=== PATIENT | male | born 1950 | race Caucasian/White ===

== ENCOUNTER → 2016-11-24 | Outpatient (CLI) | payer OTHER ==
[~2016-11-24] MED LIST: AMLO-110 PO; ASPCH81X PO; GEMF600T PO; GLIM4TAB PO; LOSA50TA6 PO; MAGN400T6 PO; METF850T PO; METO-452 PO; NITR0.4S UT; WLC625 PO
[2016-11-24 13:54] LABS: BLOOD UREA NITROGEN 31 mg/dl (7-18); BUN/CREATININE RATIO 23.5 (10-20); CARBON DIOXIDE 26 mmol/L (21-32); CHLORIDE 103 mmol/L (98-107); GLUCOSE 174 mg/dl (70-99); POTASSIUM 4.5 mmol/L (3.5-5.1); SODIUM 139 mmol/L (136-145)
== END | disposition home or self-care (01) ==
LOC: C.LABMFLN 08:15
PROVIDERS: ATTEND Physician Assistant
DX: I25.10 Atherosclerotic heart disease of native coronary artery without angina pectoris (principal); E78.5 Hyperlipidemia, unspecified; R60.0 Localized edema; R06.02 Shortness of breath; Z95.1 Presence of aortocoronary bypass graft; I10 Essential (primary) hypertension; I25.5 Ischemic cardiomyopathy; I50.22 Chronic systolic (congestive) heart failure

== ENCOUNTER → 2016-11-29 | Outpatient (CLI) | payer OTHER ==
[~2016-11-29] MED LIST changes: +PERFLUTREN LIPID MICROSPHERE (DEFINITY) IV ONE
--- NOTE | 2016-11-29 15:35 | ECHOCARDIOGRAM REPORT ---
*NOTICE TO RECEIVING [employer] AGENCY This information is strictly Confidential and protected under [place] law. [place] law prohibits you from making any further disclosure of this information unless further disclosure is expressly permitted by the written consent of the person to whom it pertains or is authorized by law. A general authorization for the release of medical or other information is not sufficient for this purpose. Hospital accepts no responsibility if the information is made available to any other person, INCLUDING THE PATIENT. Interpretation Summary * Name: ARA MONTEMAYOR Study Date: 11/29/2016 12:58 PM BP: 147/68 mmHg * Patient Location: [facility] HR: 71 * : 1950 (M/d/yyyy) Gender: Male Height: 69 in * Age: 66 yrs Ethnicity: [place] Weight: 235 lb * Ordering Physician: Sully León * Referring Physician: Sully León PA-C * Performed By: Larisa Florez RCS * * Reason For Study: LOCALIZED EDEMA * BSA: 2.2 m2 * The study was technically adequate. * Compared to prior study, there is no significant change. * -- Conclusions -- * Left ventricular systolic function is moderately reduced. * There is a large sized apical, septal, and anteroseptal wall motion abnormality with hypokinesis to * akinesis of the segments. * Ejection Fraction = 35-40%. * The left atrium is severely dilated. * There is mild mitral regurgitation. * There is moderate tricuspid regurgitation. * The estimated systolic PAP is 61mmhg. Procedure Details * A complete two-dimensional transthoracic echocardiogram was performed (2D, M-mode, Doppler and color flow Doppler). * The study was technically difficult. * There were technical limitations due to patient'sbody habitus * A contrast injection of Definity was performed to improve assessment of LV function. * Contrast was injected into an intravenous site in the left arm. * One vial of Definity ultrasound contrast was diluted in normal saline to a total volume of 10 ml. A total of '3' ml of solution was administered during imaging. * Lot # [id number] of Definity utilized for procedure. * Expiration date NOV 07. * The attending nurse who injected the contrast agent was TIA SABILLON CPL, RN. Left Ventricle * The left ventricle is normal in size. * There is no thrombus. * There is mild concentric left ventricular hypertrophy. * Left ventricular systolic function is moderately reduced. * Ejection Fraction = 35-40%. * There is a large sized apical, septal, and anteroseptal wall motion abnormality with hypokinesis to akinesis of the segments. Right Ventricle * The right ventricle is normal size. * The right ventricular systolic function is normal as assessed by tricuspid annular plane systolic excursion (TAPSE) (normal >1.5 cm). Atria * The left atrium is severely dilated. * The right atrium is mildly dilated. * There is no evidence of atrial septal defect, but resolution does not allow assessment for a patent foramen ovale. Mitral Valve * The mitral valve is normal. * There is no mitral valve stenosis. * There is mild mitral regurgitation. Tricuspid Valve * The tricuspid valve is normal. * There is no tricuspid stenosis. * There is moderate tricuspid regurgitation. * The estimated systolic PAP is 61mmhg. Aortic Valve * The aortic valve is trileaflet. * Aortic stenosis is absent. * There is no significant aortic regurgitation. Pulmonic Valve * The pulmonary valve is not well seen, but the Doppler examination is normal without significant regurgitation or stenosis. Great Vessels * The aortic root is normal size. Pericardium/Pleural * There is no pericardial effusion. Great Vessels * Normal inferior vena cava diameter and respiratory variation suggests normal central venous pressure. Left Ventricular Diastolic Function * Pulse wave TDI of the anterior and posterior mitral annulas demonstrates abnormal LV relaxation MMode 2D Measurements and Calculations IVSd 1.7 cm IVSs 1.8 cm LVIDd 6.2 cm LVIDs 5.0 cm LVPWd 1.4 cm LVPWs 1.8 cm IVS/LVPW 1.2 FS 19.6 % EDV(Teich) 195.4 ml ESV(Teich) 118.4 ml EF(Teich) 39.4 % EDV(cubed) 240.5 ml ESV(cubed) 125.2 ml EF(cubed) 48.0 % % IVS thick 4.2 % % LVPW thick 34.9 % LV mass(C)d 464.8 grams LV mass(C)dI 210.1 grams/m\S\2 LV mass(C)s 427.0 grams LV mass(C)sI 193.0 grams/m\S\2 SV(Teich) 77.0 ml SI(Teich) 34.8 ml/m\S\2 SV(cubed) 115.4 ml SI(cubed) 52.2 ml/m\S\2 LVOT diam 2.0 cm LVOT area 3.2 cm\S\2 LVAd ap4 56.7 cm\S\2 LVLd ap4 9.5 cm EDV(MOD-sp4) 267.6 ml EDV(sp4-el) 288.2 ml LVAs ap4 46.1 cm\S\2 LVLs ap4 8.7 cm ESV(MOD-sp4) 197.6 ml ESV(sp4-el) 207.7 ml EF(MOD-sp4) 26.1 % EF(sp4-el) 27.9 % LVAd ap2 42.4 cm\S\2 LVLd ap2 8.0 cm EDV(MOD-sp2) 186.9 ml EDV(sp2-el) 190.6 ml LVAs ap2 30.0 cm\S\2 LVLs ap2 7.1 cm ESV(MOD-sp2) 112.0 ml ESV(sp2-el) 108.0 ml EF(MOD-sp2) 40.1 % EF(sp2-el) 43.3 % LVLd %diff -18.44 % EDV(MOD-bp) 246.5 ml LVLs %diff -23.20 % ESV(MOD-bp) 164.3 ml EF(MOD-bp) 33.3 % SV(MOD-sp4) 70.0 ml SI(MOD-sp4) 31.6 ml/m\S\2 SV(MOD-sp2) 74.9 ml SI(MOD-sp2) 33.9 ml/m\S\2 SV(MOD-bp) 82.2 ml SI(MOD-bp) 37.2 ml/m\S\2 SV(sp4-el) 80.4 ml SI(sp4-el) 36.4 ml/m\S\2 SV(sp2-el) 82.6 ml SI(sp2-el) 37.3 ml/m\S\2 Doppler Measurements and Calculations MV E max luann 79.3 cm/sec MV P1/2t max luann 83.6 cm/sec MV P1/2t 58.6 msec MVA(P1/2t) 3.8 cm\S\2 MV dec slope 417.7 cm/sec\S\2 MV dec time 0.16 sec Ao V2 max 120.8 cm/sec Ao max PG 5.8 mmHg Ao max PG (full) 3.6 mmHg MIGUEL(V,A) 2.0 cm\S\2 MIGUEL(V,D) 2.0 cm\S\2 LV V1 max PG 2.2 mmHg LV V1 max 74.4 cm/sec MR max luann 484.5 cm/sec MR max PG 93.9 mmHg PA V2 max 105.9 cm/sec PA max PG 4.5 mmHg TR max lunan 380.2 cm/sec
== END | disposition home or self-care (01) ==
LOC: C.CPL 12:38
PROVIDERS: ATTEND Physician Assistant
DX: R60.0 Localized edema (principal); I25.10 Atherosclerotic heart disease of native coronary artery without angina pectoris; E78.5 Hyperlipidemia, unspecified; R06.02 Shortness of breath; Z95.1 Presence of aortocoronary bypass graft; I10 Essential (primary) hypertension; I50.22 Chronic systolic (congestive) heart failure; I25.5 Ischemic cardiomyopathy

== ENCOUNTER → 2017-04-04 | Outpatient (CLI) | payer OTHER ==
[~2017-04-04] MED LIST changes: -METO-452 PO; +METO1TAB66 PO; -PERFLUTREN LIPID MICROSPHERE (DEFINITY) IV ONE
[2017-04-04 13:19] LABS: ALT/SGPT 15 U/L (12-78); BLOOD UREA NITROGEN 30 mg/dl (7-18); BUN/CREATININE RATIO 23.4 (10-20); CALCIUM 9.8 mg/dl (8.5-10.1); CARBON DIOXIDE 27 mmol/L (21-32); CHLORIDE 107 mmol/L (98-107); GLUCOSE 154 mg/dl (70-99); SODIUM 138 mmol/L (136-145)
[2017-04-04 13:22] LABS: CHOLESTEROL 137 mg/dl (0-200); CHOLESTEROL/HDL RATIO 3.7; HDL CHOLESTEROL 37 mg/dl; LDL CHOLESTEROL CALCULATED 78 mg/dl; TRIGLYCERIDES 108 mg/dl (0-150); VERY LOW DENSITY LIPOPROT CALC 22 mg/dl
[2017-04-04 13:27] LABS: ESTIMATED AVERAGE GLUCOSE 174 mg/dl; HA1C FLAG Normal (Normal)
== END | disposition home or self-care (01) ==
LOC: C.LABMFLN 07:03
PROVIDERS: ATTEND Family Medicine
DX: E11.9 Type 2 diabetes mellitus without complications (principal); I10 Essential (primary) hypertension; I25.10 Atherosclerotic heart disease of native coronary artery without angina pectoris

== ENCOUNTER → 2017-07-02 | Outpatient (CLI) | payer OTHER ==
[~2017-07-02] MED LIST changes: +METO-452 PO; -METO1TAB66 PO
[2017-07-02 18:29] LABS: HEMATOCRIT 36.4 % (42-52); MEAN CELL VOLUME 97.1 fL (80-100); MEAN CORPUSCULAR HEMOGLOBIN 32.5 pg (25-34); MEAN CORPUSCULAR HGB CONC 33.5 g/dl (32-36); MEAN PLATELET VOLUME 10.5 fL (7.4-10.4); PLATELET COUNT 234 K/uL (130-400); RED BLOOD COUNT 3.75 M/uL (4.7-6.1); WHITE BLOOD COUNT 7.13 K/uL (4.8-10.8)
[2017-07-02 18:41] LABS: ALT/SGPT 19 U/L (12-78); AST/SGOT 20 U/L (15-37); BLOOD UREA NITROGEN 37 mg/dl (7-18); BUN/CREATININE RATIO 24.2 (10-20); CALCIUM 9.7 mg/dl (8.5-10.1); CARBON DIOXIDE 30 mmol/L (21-32); CHLORIDE 102 mmol/L (98-107); CREATININE 1.53 mg/dl (0.60-1.40); GLUCOSE 120 mg/dl (70-99); MAGNESIUM 2.4 mg/dl (1.8-2.4); POTASSIUM 4.4 mmol/L (3.5-5.1); SODIUM 137 mmol/L (136-145)
[2017-07-02 18:44] LABS: CHOLESTEROL 184 mg/dl (0-200); CHOLESTEROL/HDL RATIO 3.8; HDL CHOLESTEROL 49 mg/dl; LDL CHOLESTEROL CALCULATED 105 mg/dl; TRIGLYCERIDES 152 mg/dl (0-150); VERY LOW DENSITY LIPOPROT CALC 30 mg/dl
== END | disposition home or self-care (01) ==
LOC: C.LABMFLN 12:49
PROVIDERS: ATTEND Internal Medicine Cardiovascular Disease
DX: E78.5 Hyperlipidemia, unspecified (principal); I10 Essential (primary) hypertension; I50.22 Chronic systolic (congestive) heart failure; I25.10 Atherosclerotic heart disease of native coronary artery without angina pectoris; I25.2 Old myocardial infarction; R00.2 Palpitations

== ENCOUNTER → 2017-08-20 | Outpatient (CLI) | payer OTHER ==
[2017-08-20 14:08] LABS: BLOOD UREA NITROGEN 33 mg/dl (7-18); CALCIUM 10.2 mg/dl (8.5-10.1); CARBON DIOXIDE 30 mmol/L (21-32); CREATININE 1.69 mg/dl (0.60-1.40); GLUCOSE 151 mg/dl (70-99); POTASSIUM 4.4 mmol/L (3.5-5.1); SODIUM 138 mmol/L (136-145)
== END | disposition home or self-care (01) ==
LOC: C.LABMFLN 09:20
PROVIDERS: ATTEND Physician Assistant Medical
DX: I50.23 Acute on chronic systolic (congestive) heart failure (principal)

== ENCOUNTER → 2017-08-24 | Outpatient (CLI) | payer OTHER ==
[2017-08-24 13:20] LABS: BLOOD UREA NITROGEN 36 mg/dl (7-18); CARBON DIOXIDE 30 mmol/L (21-32); GLUCOSE 240 mg/dl (70-99); POTASSIUM 4.5 mmol/L (3.5-5.1); SODIUM 137 mmol/L (136-145)
== END | disposition home or self-care (01) ==
LOC: C.LABMFLN 07:57
PROVIDERS: ATTEND Internal Medicine Cardiovascular Disease
DX: R00.1 Bradycardia, unspecified (principal); I11.0 Hypertensive heart disease with heart failure; R00.2 Palpitations; I25.119 Atherosclerotic heart disease of native coronary artery with unspecified angina pectoris; I25.5 Ischemic cardiomyopathy; I47.1 Supraventricular tachycardia; I50.23 Acute on chronic systolic (congestive) heart failure

== ENCOUNTER → 2017-08-28 | Outpatient (CLI) | payer OTHER ==
[2017-08-28 14:14] LABS: BLOOD UREA NITROGEN 36 mg/dl (7-18); CARBON DIOXIDE 30 mmol/L (21-32); CREATININE 1.69 mg/dl (0.60-1.40); GLUCOSE 248 mg/dl (70-99); POTASSIUM 4.5 mmol/L (3.5-5.1); SODIUM 137 mmol/L (136-145)
== END | disposition home or self-care (01) ==
LOC: C.LABMFLN 09:02
PROVIDERS: ATTEND Internal Medicine Cardiovascular Disease
DX: I50.22 Chronic systolic (congestive) heart failure (principal)

== ENCOUNTER → 2017-09-14 | Outpatient (CLI) | payer OTHER ==
--- NOTE | 2017-09-12 13:36 | ECHOCARDIOGRAM REPORT ---
*NOTICE TO RECEIVING [employer]ENCY This information is strictly Confidential and protected under [place] law. [place] law prohibits you from making any further disclosure of this information unless further disclosure is expressly permitted by the written consent of the person to whom it pertains or is authorized by law. A general authorization for the release of medical or other information is not sufficient for this purpose. Hospital accepts no responsibility if the information is made available to any other person, INCLUDING THE PATIENT. Interpretation Summary * Name: ARA MONTEMAYOR Study Date: 09/11/2017 07:33 AM BP: 150/91 mmHg * Patient Location: [facility] Lab HR: 68 * : 1950 (M/d/yyyy) Gender: Male Height: 69 in * Age: 67 yrs Ethnicity: [place] Weight: 225 lb * Ordering Physician: Chema Segura * Referring Physician: Chema Segura * Performed By: Nohemi Lobo RCS * * Reason For Study: CHF * BSA: 2.2 m2 * -- Conclusions -- * 1. Moderately dilated left ventricle with moderately reduced systolic function. Estimated EF 35-40%. Akinesis of the inferior wall, mid anteroseptum, distal septum, distal anterior, distal lateral wall segments, including the apex. Mild left ventricular hypertrophy of the anteroseptum. Tissue Doppler suggests elevated left atrial pressure. No definite apical thrombus. * 2. Right ventricle not well visualized but appears to be at least mildly dilated with reduced systolic function. * 3. The left atrium is severely dilated. * 4. The right atrium is mildly dilated. * 5. There is mild to moderate mitral regurgitation. * 6. There is mild to moderate tricuspid regurgitation. * 7. Severely elevated right ventricular systolic pressure; 60mmHg. * 8. Technically difficult study, enhanced with IV Definity. * 9. Similar findings compared to prior study on 11/29/2016. Procedure Details * A complete two-dimensional transthoracic echocardiogram was performed (2D, M-mode, Doppler and color flow Doppler). * The study was technically difficult. * A contrast injection of Definity was performed to improve assessment of LV function. * A contrast injection of Definity was performed to improve assessment for apical thrombus. * Contrast was injected into an intravenous site in the right arm. * One vial of Definity ultrasound contrast was diluted in normal saline to a total volume of 10 ml. A total of '1' ml of solution was administered during imaging. * Lot # [id number] of Definity utilized for procedure. * Expiration date . * The attending nurse who injected the contrast agent was Shirley Crawley RN. Left Ventricle * Moderately dilated left ventricle with moderately reduced systolic function. Estimated EF 35-40%. Akinesis of the inferior wall, mid anteroseptum, distal septum, distal anterior, distal lateral wall segments, including the apex. Mild left ventricular hypertrophy of the anteroseptum. Tissue Doppler suggests elevated left atrial pressure. No definite apical thrombus. Right Ventricle * Right ventricle not well visualized but appears to be at least mildly dilated with reduced systolic function. Atria * The left atrium is severely dilated. * The right atrium is mildly dilated. * There is no evidence of atrial septal defect, but resolution does not allow assessment for a patent foramen ovale. Mitral Valve * The mitral valve is grossly normal. * There is no mitral valve stenosis. * There is mild to moderate mitral regurgitation. Tricuspid Valve * There is no tricuspid stenosis. * There is mild to moderate tricuspid regurgitation. Aortic Valve * The aortic valve is trileaflet. * No hemodynamically significant valvular aortic stenosis. * There is no significant aortic regurgitation. Pulmonic Valve * The pulmonic valve is not well seen, but is grossly normal. * There is no pulmonic valvular stenosis. * Mild pulmonic valvular regurgitation. Great Vessels * The aortic root is normal size. * Aortic arch of normal dimension. Pericardium/Pleural * There is no pericardial effusion. Great Vessels * Normal inferior vena cava size and collapsability with sniff indicates a normal right atrial pressure of 3 mmHg MMode 2D Measurements and Calculations IVSd 1.3 cm IVSs 1.5 cm LVIDd 6.0 cm LVIDs 5.3 cm LVPWd 1.1 cm LVPWs 1.6 cm IVS/LVPW 1.2 FS 11.3 % EDV(Teich) 178.0 ml ESV(Teich) 135.2 ml EF(Teich) 24.1 % EDV(cubed) 212.9 ml ESV(cubed) 148.6 ml EF(cubed) 30.2 % % IVS thick 11.6 % % LVPW thick 48.2 % LV mass(C)d 305.8 grams LV mass(C)dI 140.8 grams/m\S\2 LV mass(C)s 357.1 grams LV mass(C)sI 164.4 grams/m\S\2 SV(Teich) 42.8 ml SI(Teich) 19.7 ml/m\S\2 SV(cubed) 64.2 ml SI(cubed) 29.6 ml/m\S\2 Ao root diam 3.6 cm Ao root area 10.3 cm\S\2 ACS 1.7 cm LA dimension 5.3 cm asc Aorta Diam 3.4 cm LA/Ao 1.5 LVAd ap4 39.8 cm\S\2 LVLd ap4 9.0 cm EDV(MOD-sp4) 153.4 ml EDV(sp4-el) 148.6 ml LVAs ap4 27.1 cm\S\2 LVLs ap4 8.7 cm ESV(MOD-sp4) 69.3 ml ESV(sp4-el) 71.7 ml EF(MOD-sp4) 54.8 % EF(sp4-el) 51.8 % LVAd ap2 47.1 cm\S\2 LVLd ap2 9.4 cm EDV(MOD-sp2) 203.7 ml EDV(sp2-el) 200.1 ml LVAs ap2 36.5 cm\S\2 LVLs ap2 9.0 cm ESV(MOD-sp2) 127.4 ml ESV(sp2-el) 125.5 ml EF(MOD-sp2) 37.4 % EF(sp2-el) 37.3 % LVLd %diff 3.8 % EDV(MOD-bp) 177.6 ml LVLs %diff 3.6 % ESV(MOD-bp) 92.6 ml EF(MOD-bp) 47.9 % SV(MOD-sp4) 84.1 ml SI(MOD-sp4) 38.7 ml/m\S\2 SV(MOD-sp2) 76.3 ml SI(MOD-sp2) 35.1 ml/m\S\2 SV(MOD-bp) 85.0 ml SI(MOD-bp) 39.1 ml/m\S\2 SV(sp4-el) 76.9 ml SI(sp4-el) 35.4 ml/m\S\2 SV(sp2-el) 74.6 ml SI(sp2-el) 34.3 ml/m\S\2 Doppler Measurements and Calculations MV E max luann 77.8 cm/sec MV A max luann 25.3 cm/sec MV E/A 3.1 MV P1/2t max luann 75.9 cm/sec MV P1/2t 120.0 msec MVA(P1/2t) 1.8 cm\S\2 MV dec slope 185.3 cm/sec\S\2 MV dec time 0.23 sec Ao V2 max 96.0 cm/sec Ao max PG 3.7 mmHg Ao max PG (full) 2.0 mmHg LV V1 max PG 1.6 mmHg LV V1 max 64.2 cm/sec PA V2 max 91.4 cm/sec PA max PG 3.4 mmHg PI max luann 214.7 cm/sec PI max PG 18.5 mmHg PI dec slope 97.5 cm/sec\S\2 PI P1/2t 644.7 msec TR max luann 378.2 cm/sec RVSP(TR) 60.2 mmHg RAP systole 3.0 mmHg
[~2017-09-14] MED LIST changes: +PERFLUTREN LIPID MICROSPHERE (DEFINITY) IV ONE; +REGADENOSON 0.4 MG/5 ML SYR ONE
--- NOTE | 2017-09-14 16:46 | Myocardial Perfusion Study ---
Myocardial Perfusion Study Rpt Myocardial Perfusion Study Rpt Date of Service 09/14/2017 Myocardial Perfusion Study Rpt Procedure: 1. Myocardial perfusion study performed in multiple views/images 2. Lexiscan pharmacologic stress ECG Indications: 1. Acute on chronic systolic CHF 2. Angina 3. CAD 4. Ischemic cardiomyopathy Consent: Informed written consent was obtained prior to the procedure. Ordering physician: Dr. Segura Procedural details: For the stress portion of the study, Lexiscan 0.4 mg was intravenously administered followed by a saline flush. This was followed by 32 mCi of technetium 99m Cardiolite, injected at 9:45 a.m. on 09/14/2017. 30 minutes following the injection, imaging of the heart was performed in multiple projections. For the rest portion of the study, 10.8 mCi technetium 99m Cardiolite was injected intravenously at 8:00 a.m. on 09/14/2017. 1 hour following the injection, imaging of the heart was performed in the same projections. Lexiscan stress ECG: Resting ECG demonstrated: Sinus rhythm with first-degree AV block 69 bpm. Nonspecific T-wave abnormality. Maximum heart rate: 88 bpm Resting blood pressure: 139/83 mmHg Maximum blood pressure: 145/82 mmHg Maximal, age-predicted heart rate: 57 % Significant ST changes: None Arrhythmia: Nonsustained atrial tachycardia Symptoms: No chest pain or shortness of breath reported. Findings: Rotating raw imaging demonstrated no significant lung uptake. There is no significant motion artifact. Heart size appeared enlarged. Myocardial perfusion demonstrated a large area of severely reduced uptake involving the mid to distal anterior wall, mid to distal inferolateral wall, and apex. These defects were fixed in post stress and rest imaging with minimal reversibility in the mid anterior wall. There was a large area of moderately reduced uptake involving the base to distal inferior and base to distal inferoseptal wall segments. These defects were predominantly fixed with minimal reversibility. Ejection fraction: 29 % Wall motion: Akinesis of the mid to distal inferolateral, mid to distal anterior, base to distal inferior, base to distal inferoseptal, and apical wall segments. Otherwise, global hypokinesis. No significant transient ischemic dilation. Impression: 1. Abnormal myocardial perfusion study suggesting large infarct involving the LAD, RCA, and circumflex distribution. There is kathy-infarct ischemia suggested in the mid anterior wall and also the inferior/inferoseptal sierra. 2. Severely reduced LV systolic function. EF 29%. 3. Akinesis of the mid to distal inferolateral, mid to distal anterior, base to distal inferior, base to distal inferoseptal, and apical wall segments. Otherwise, global hypokinesis. 4. No chest pain reported. 5. Brief, nonsustained atrial tachycardia. 6. Nondiagnostic Lexiscan ECG.
== END | disposition home or self-care (01) ==
LOC: C.NUCL 09-11 06:48
PROVIDERS: ATTEND Internal Medicine Cardiovascular Disease
DX: I11.0 Hypertensive heart disease with heart failure (principal); I50.23 Acute on chronic systolic (congestive) heart failure; I25.119 Atherosclerotic heart disease of native coronary artery with unspecified angina pectoris; I47.1 Supraventricular tachycardia; I25.5 Ischemic cardiomyopathy; R00.2 Palpitations; R00.1 Bradycardia, unspecified; R94.39 Abnormal result of other cardiovascular function study

== ENCOUNTER → 2017-10-09 | Outpatient (CLI) | payer OTHER ==
[~2017-10-09] MED LIST changes: -PERFLUTREN LIPID MICROSPHERE (DEFINITY) IV ONE; -REGADENOSON 0.4 MG/5 ML SYR ONE
[2017-10-09 13:23] LABS: BLOOD UREA NITROGEN 26 mg/dl (7-18); CALCIUM 9.7 mg/dl (8.5-10.1); CARBON DIOXIDE 29 mmol/L (21-32); CREATININE 1.34 mg/dl (0.60-1.40); GLUCOSE 192 mg/dl (70-99); POTASSIUM 4.6 mmol/L (3.5-5.1); SODIUM 137 mmol/L (136-145)
== END | disposition home or self-care (01) ==
LOC: C.LABMFLN 09:32
PROVIDERS: ATTEND Internal Medicine Cardiovascular Disease
DX: I50.22 Chronic systolic (congestive) heart failure (principal)

== ENCOUNTER → 2018-03-07 | Outpatient (CLI) | payer OTHER ==
[~2018-03-07] MED LIST changes: -AMLO-110 PO; +AMLO5TAB3 PO
--- NOTE | 2018-03-07 13:35 | DIAGNOSTIC IMAGING REPORT ---
CHEST 2 VIEWS ROUTINE CLINICAL HISTORY: R06.02 Shortness of breathPt with increase in shortness of breat COMPARISON STUDY: 02/16/2013 FINDINGS: Mild cardiomegaly. Prior median sternotomy. Lungs are clear. Diaphragms are smooth. IMPRESSION: Mild cardiomegaly. Otherwise negative study. The above report was generated using voice recognition software. It may contain grammatical, syntax or spelling errors. Electronically signed by: Antonio Schmitt M.D. 03/07/2018 1:33 PM Dictated Date/Time: 03/07/2018 1:33 PM
[2018-03-07 14:50] LABS: BASO % 0.3 %; BASO ABS # 0.02 K/uL (0-0.2); EOS % 0.9 %; EOS ABS # 0.07 K/uL (0-0.5); HEMATOCRIT 33.1 % (42-52); HEMOGLOBIN 10.9 g/dL (14.0-18.0); IG# 0.02 K/uL (0.00-0.02); LYMPH % 19.2 %; LYMPH ABS # 1.43 K/uL (1.2-3.4); MEAN CELL VOLUME 102.2 fL (80-100); MEAN CORPUSCULAR HEMOGLOBIN 33.6 pg (25-34); MEAN CORPUSCULAR HGB CONC 32.9 g/dl (32-36); MONO % 10.9 %; MONO ABS # 0.81 K/uL (0.11-0.59); NEUT % 68.4 %; NEUT ABS # 5.08 K/uL (1.4-6.5); PLATELET COUNT 231 K/uL (130-400); RED CELL DISTRIBUTION WIDTH CV 15.6 % (11.5-14.5); RED CELL DISTRIBUTION WIDTH SD 57.9 fL (36.4-46.3); WHITE BLOOD COUNT 7.43 K/uL (4.8-10.8)
[2018-03-07 15:24] LABS: ALKALINE PHOSPHATASE 104 U/L (45-117); ALT/SGPT 14 U/L (12-78); AST/SGOT 15 U/L (15-37); BLOOD UREA NITROGEN 38 mg/dl (7-18); CALCIUM 9.4 mg/dl (8.5-10.1); CARBON DIOXIDE 18 mmol/L (21-32); CREATININE 1.87 mg/dl (0.60-1.40); GLUCOSE 151 mg/dl (70-99); POTASSIUM 5.1 mmol/L (3.5-5.1); SODIUM 135 mmol/L (136-145); TOTAL PROTEIN 8.1 gm/dl (6.4-8.2)
[2018-03-08 06:23] LABS: HEMOGLOBIN A1C 7.1 % (4.5-5.6)
== END | disposition home or self-care (01) ==
LOC: C.RAD1850 13:11
PROVIDERS: ATTEND Family Medicine
DX: R06.02 Shortness of breath (principal); R06.09 Other forms of dyspnea